=== PATIENT | male | born 2000 | race African-American/Black ===

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

== ENCOUNTER 2024-04-05 19:44 | Emergency (ER) | payer OTHER ==
[~2024-04-05] VITALS: Ht 182.9 cm; Wt 88.7 kg
[2024-04-05 19:47] VITALS: BP 146/80; TEMP 98.7; O2SAT 100
== END 2024-04-05 23:48 | disposition left against medical advice (07) ==
LOC: M ED 19:44 → MERGE 19:44 → M ED 23:48
DX: Z53.21 Procedure and treatment not carried out due to patient leaving prior to being seen by health care provider (principal)

== ENCOUNTER → 2024-04-27 | Outpatient (CLI) | payer OTHER | LOC: M WUC 15:52 | PROVIDERS: ATTEND Physician Assistant | DX: M79.645 Pain in left finger(s) (principal) ==